=== PATIENT | male | born 1950 | race Caucasian/White ===

== ENCOUNTER 2023-03-08 14:38 | Inpatient (IN) ==
[2023-03-08] MEDS ORDERED: SODIUM CHLORIDE 0.9% 1,000 ML IV ONE (15:06)
[2023-03-08 15:22] LABS: Basophils # (auto) 0.09 K/uL (0.00-0.20); Basophils % (auto) 0.9 %; Eosinophils # (auto) 0.01 K/uL (0.00-0.50); Eosinophils % (auto) 0.1 %; Hematocrit (blood only) 33.2 % (42.0-52.0); Immature Granulocytes # (auto) 0.04 K/uL (0.01-0.20); Immature Granulocytes % (auto) 0.4 %; Lymphocytes # (auto) 0.94 K/uL (1.20-3.40); Lymphocytes % (auto) 9.4 %; Mean Corpuscular Hemoglobin 29.3 pg (25.0-34.0); Mean Corpuscular Hgb Conc 33.1 g/dL (32.0-36.0); Mean Corpuscular Volume 88.3 fL (80.0-100.0); Mean Platelet Volume 11.1 fL (9.4-12.4); Monocytes # (auto) 0.91 K/uL (0.11-0.59); Monocytes % (auto) 9.1 %; Neutrophils # (auto) 8.01 K/uL (1.40-6.50); Neutrophils % (auto) 80.1 %; Platelet Count 225 K/uL (130-400); RDW Standard Deviation 45.4 fL (36.4-46.3); Red Blood Count 3.76 M/uL (4.70-6.10)
[2023-03-08 15:30] LABS: Albumin Globulin Ratio 1.5 (0.9-2); BUN Creatinine Ratio 18.9 (10-20); Bilirubin,Total 0.7 mg/dl (0.2-1.0); Calcium 8.6 mg/dl (8.6-10.3); Creatinine Clr Calc Pharmacy 25.1 ml/min; Est GFR (African American) 25.2 ml/min; Est GFR (Non-African American) 21.7 ml/min; Globulin 2.7 gm/dl (2.5-4.0); Magnesium 1.5 mg/dl (1.7-2.4); Potassium 4.4 mmol/L (3.5-5.1); Total Protein 6.7 gm/dl (6.0-8.3)
[2023-03-08 15:37] LABS: Troponin I High Sensitivity 18.3 pg/ml (0-20)
--- NOTE | 2023-03-08 15:40 | Emergency Department Note ---
Impression & Plan Weakness, Hypotension, DUNCAN (acute kidney injury), Hypomagnesemia ED Provider Note ED Provider Note NAME: BRIDGER CAMARGO AGE:72 SEX: Male : 1950 ARRIVES VIA: EMS INFORMANT: Patient ED PROVIDER(s): Phyllis Valdez DO CHIEF COMPLAINT: generalized weakness, hypotension HPI: This is a 72-year-old male presents emergency department via EMS due to weakness and hypotension. Patient states he had been drinking fluids but had nothing to eat earlier in the day. He denies any alcohol consumption. He states while walking up to gait C he began feeling very weak. He states he sat down. He denies any fall or head injury. He denies loss of consciousness. He states after several minutes of sitting there his family was concerned and local state troopers helped him up and EMS was called for an evaluation. EMS found that his blood pressure was very low and recommend that he come to the ER for additional evaluation. Patient states at this time he feels well, just a little tired. He states he does take medication for hypertension, no recent change in this medication. Patient denies any recent fevers, chills, or illness. Patient denies any coming headaches, vision changes, nausea/vomiting, chest pain, palpit ations, trouble breathing, or abdominal pain. PAST MEDICAL HISTORY:See Below PAST SURGICAL HISTORY:See Below FAMILY HISTORY:See Below SOCIAL HISTORY:See Below HOME MEDICATIONS:See Below ALLERGIES:See Below VITALS:See Below PHYSICAL EXAMINATION: GENERAL: alert, well appearing, well nourished, no distress, non-toxic EYE EXAM: normal conjunctiva, PERRL and EOM's grossly intact OROPHARYNX: no exudate, no erythema, lips, buccal mucosa, and tongue normal and mucous membranes are moist NECK: supple, no nuchal rigidity, no adenopathy, non-tender LUNGS: Clear to auscultation. Normal chest wall mechanics, no w/r/r HEART: no murmurs, S1 normal and S2 normal ABDOMEN: abdomen soft, non-tender, normo-active bowel sounds, no masses, no rebound or guarding. BACK: Back is symmetrical on inspection and there is no deformity, no midline tenderness, no CVA tenderness. SKIN: no rashes, petechiae, orbruising UPPER EXTREMITIES: upper extremities are grossly normal. FROM, nml pulses b/l. LOWER EXTREMITIES: No pitting edema. FROM, nml pulses b/l. NEURO EXAM: Normal sensorium, cranial nerves II-XII grossly intact, normal speech, no facial droop,nogross weakness of arms, no gross weakness of legs. Gross sensation intact. No ataxia. Vital Signs: reviewed and remarkable Differential Diagnosis: dehydration, CVA, ICH, heat exhaustion, anemia, hypoglycemia, hyponatremia, hypernatremia, urinary tract infection, pneumonia, bronchitis, sepsis, gastroenteritis, electrolyte abnormality, as well as others were considered MEDICAL DECISION MAKING: This is a 72-year-old male brought in by EMS after patient complained of significant weakness and needed to sit down while walking the stadium. Patient afebrile and vital signs stable. Labs drawn and sent, IV established, EKG performed bedside interpreted by me and patient monitored on telemetry. Patient sent for additional CT head as a precaution which was reassuring. Patient was given IV fluids as he admitted to decreased oral intake today. Patient found to have new kidney dysfunction with a creatinine of 2.75 which is markedly elevated compared to prior from outpatient labs that was 1.2. Patient also found to have hypomagnesemia which was repleted via IV at bedside while patient was monitored in the department. No evidence of significant urinary retention, patient sent for CT imaging which did show prostatomegaly and chronic bladder outlet obstruction although at this time I do not suspect that this is a postobstructive process. No other evidence of obstructive uropathy. I discussed all results with patient and family at bedside. We discussed the need for additional inpatient evaluation given these findings and his symptoms today. Patient verbalized understanding was in agreement the plan. Case discussed with on-call [facility] hospitalist team. Consultation(s): 1854: Discussed with Dr. Crocker, [facility]ist team. ER Treatment Provided: See below 1622: Patient updated on results. Patient was able to pull lab values of his phone from March 2022 which at that time showed a creatinine of 1.2. Diagnostics Interpreted By Me: -ECG: Normal sinus at 91, normal axis, normal intervals, no acute ST/T wave changes -Cardiac Monitoring: An order was placed for continuous cardiac monitoring. The monitor shows a rate of 88 with normal sinus rhythm. -Laboratory studies: As stated above and show below. -Imaging studies: [] Triage Nursing Note Reviewed Prior/Outside Records Reviewed Past Med/Surg History Social History Smoking Status: Never smoker Allergies Allergies Allergy/AdvReac Type Severity Reaction Status Date / Time banana Allergy Severe Anaphylaxis Verified 03/08/23 16:45 Penicillins Allergy Unknown POSITIVE Verified 03/08/23 16:45 ALLERGY TEST Sulfa (Sulfonamide Allergy Unknown POSITIVE Verified 03/08/23 16:45 Antibiotics) ALLERGY TEST Home Meds Home Medications Medication Instructions Recorded Confirmed atorvastatin 40 mg tablet 40 mg PO QPM 03/08/23 03/08/23 calcium citrate 200 mg (950 mg) 600 mg PO HS 03/08/23 03/08/23 tablet lisinopril 20 1 tab PO QDL 03/08/23 03/08/23 mg-hydrochlorothiazide 25 mg tablet metformin 500 mg tablet 1,000 mg PO BIDM 03/08/23 03/08/23 potassium citrate 10 mEq (1,080 10 meq PO TIDM 03/08/23 03/08/23 mg) tablet,extended release sertraline 25 mg tablet 25 mg PO DAILY 03/08/23 03/08/23 Results & Data (ED) Vital Signs Vital Signs - 24 hr 03/08/23 14:44 03/08/23 15:00 03/08/23 14:49 Temperature 37.7 C H Temperature Source Oral Pulse Rate 85 93 H 104 H Respiratory Rate 15 13 Blood Pressure 103/53 L 109/65 Blood Pressure Mean 69 79 Pulse Oximetry 97 96 Oxygen Delivery Method Room Air Room Air Sepsis Recent Fever Within 48 Hours No Sepsis New/Unexplained Change in Mental Status N/A Sepsis Action Taken by Nursing No Action Required 03/08/23 15:33 03/08/23 15:44 03/08/23 16:00 Temperature Temperature Source Pulse Rate 89 91 H 90 Respiratory Rate 18 19 Blood Pressure 100/63 96/57 L Blood Pressure Mean 75 70 Pulse Oximetry 98 97 Oxygen Delivery Method Room Air Room Air Sepsis Recent Fever Within 48 Hours Sepsis New/Unexplained Change in Mental Status Sepsis Action Taken by Nursing 03/08/23 16:30 03/08/23 16:57 03/08/23 17:30 Temperature Temperature Source Pulse Rate 85 88 82 Respiratory Rate 13 18 17 Blood Pressure 103/61 108/65 105/55 L Blood Pressure Mean 75 79 71 Pulse Oximetry 97 96 97 Oxygen Delivery Method Room Air Room Air Room Air Sepsis Recent Fever Within 48 Hours Sepsis New/Unexplained Change in Mental Status Sepsis Action Taken by Nursing 03/08/23 18:03 03/08/23 18:30 03/08/23 19:00 Temperature Temperature Source Pulse Rate 84 78 83 Respiratory Rate 16 17 14 Blood Pressure 110/72 108/70 108/67 Blood Pressure Mean 84 82 80 Pulse Oximetry 97 98 97 Oxygen Delivery Method Room Air Room Air Room Air Sepsis Recent Fever Within 48 Hours Sepsis New/Unexplained Change in Mental Status Sepsis Action Taken by Nursing 03/08/23 20:07 03/08/23 20:30 03/08/23 21:00 Temperature Temperature Source Pulse Rate 86 84 85 Respiratory Rate 17 20 19 Blood Pressure 110/63 106/71 105/68 Blood Pressure Mean 78 82 80 Pulse Oximetry 91 94 96 Oxygen Delivery Method Room Air Room Air Room Air Sepsis Recent Fever Within 48 Hours Sepsis New/Unexplained Change in Mental Status Sepsis Action Taken by Nursing 03/08/23 21:30 Temperature Temperature Source Pulse Rate 87 Respiratory Rate 16 Blood Pressure 99/67 L Blood Pressure Mean 77 Pulse Oximetry 95 Oxygen Delivery Method Room Air Sepsis Recent Fever Within 48 Hours Sepsis New/Unexplained Change in Mental Status Sepsis Action Taken by Nursing Laboratory Data 03/08/23 14:47 03/08/23 14:47 Lab Results 03/08/23 03/08/23 03/08/23 Range/Units 14:47 14:47 14:47 WBC 10.00 (4.8-10.8) K/ul RBC 3.76 L (4.70-6.10) M/uL Hgb 11.0 L (14.0-18.0) g/dl Hct 33.2 L (42.0-52.0) % MCV 88.3 (80.0-100.0) fL MCH 29.3 (25.0-34.0) pg MCHC 33.1 (32.0-36.0) g/dL RDW Std Deviation 45.4 (36.4-46.3) fL RDW Coeff of Liz 14.0 (11.5-14.5) % Plt Count 225 (130-400) K/uL MPV 11.1 (9.4-12.4) fL Immature Gran % (Auto) 0.4 % Neut % (Auto) 80.1 % Lymph % (Auto) 9.4 % [place] % (Auto) 9.1 % Eos % (Auto) 0.1 % Baso % (Auto) 0.9 % Neut # (Auto) 8.01 H (1.40-6.50) K/uL Lymph # (Auto) 0.94 L (1.20-3.40) K/uL [place] # (Auto) 0.91 H (0.11-0.59) K/uL Eos # (Auto) 0.01 (0.00-0.50) K/uL Baso # (Auto) 0.09 (0.00-0.20) K/uL Immature Gran # (Auto) 0.04 (0.01-0.20) K/uL PT 11.9 (9.0-12.0) Seconds INR 1.1 (0.9-1.1) Sodium 135 L (136-145) mmol/L Potassium 4.4 (3.5-5.1) mmol/L Chloride 103 (98-107) mmol/L Carbon Dioxide 25 (21-32) mmol/L Anion Gap 7 (3-11) BUN 52 H (6-23) mg/dl Creatinine 2.75 H (0.6-1.4) mg/dl Est Cr Clr Drug Dosing 25.1 ml/min Est GFR ( Amer) 25.2 ml/min Est GFR (Non-Af Amer) 21.7 ml/min BUN/Creatinine Ratio 18.9 (10-20) Glucose 128 H (70-99(Fasting)) mg/dl Calcium 8.6 (8.6-10.3) mg/dl Magnesium 1.5 L (1.7-2.4) mg/dl Total Bilirubin 0.7 (0.2-1.0) mg/dl AST 16 (13-39) U/L ALT 13 (7-52) U/L Alkaline Phosphatase 47 (34-104) U/L Troponin I High Sens 18.3 (0-20) pg/ml Total Protein 6.7 (6.0-8.3) gm/dl Albumin 4.0 (3.4-5.0) gm/dl Globulin 2.7 (2.5-4.0) gm/dl Albumin/Globulin Ratio 1.5 (0.9-2) Lipase 21 (11-82) U/L TSH (0.300-4.500) uIu/ml Urine Color Urine Appearance (Clear) Urine pH (4.5-7.5) Ur Specific [place] (1.000-1.030) Urine Protein (Negative) Urine Glucose (UA) (Negative) Urine Ketones (Negative) Urine Blood (Negative) Urine Nitrite (Negative) Urine Bilirubin (Negative) Urine Urobilinogen (Negative) Ur Leukocyte Esterase (Negative) Urine WBC (Auto) (0-5) /hpf Urine RBC (Auto) (0-4) /hpf U Hyaline Cast (Auto) (0-5) /lpf U Epithel Cells (Auto) (0-5) /lpf Urine Bacteria (Auto) (Negative) Adenovirus (PCR) (NotDetected) B. pertussis DNA (PCR) (NotDetected) B.parapertussis DNA PCR (NotDetected) Lyme Disease IgG Ab (Negative) Lyme Disease IgM Ab (Negative) C. pneumoniae DNA (PCR) (NotDetected) Coronavirus OC43 (PCR) (NotDetected) Coronavirus HKU1 (PCR) (NotDetected) Coronavirus 229E (PCR) (NotDetected) SARS-CoV-2 (PCR) (NotDetected) Coronavirus NL63 (PCR) (NotDetected) Human Metapneumovir PCR (NotDetected) Influenza Type A (PCR) (NotDetected) Influenza Type B (PCR) (NotDetected) M. pneumoniae (PCR) (NotDetected) Parainfluenza 1 (PCR) (NotDetected) Parainfluenza 2 (PCR) (NotDetected) Parainfluenza 3 (PCR) (NotDetected) Parainfluenza 4 (PCR) (NotDetected) RSV (PCR) (NotDetected) Entero/Rhino (PCR) (NotDetected) 03/08/23 03/08/23 03/08/23 Range/Units 14:47 14:47 16:02 WBC (4.8-10.8) K/ul RBC (4.70-6.10) M/uL Hgb (14.0-18.0) g/dl Hct (42.0-52.0) % MCV (80.0-100.0) fL MCH (25.0-34.0) pg MCHC (32.0-36.0) g/dL RDW Std Deviation (36.4-46.3) fL RDW Coeff of Liz (11.5-14.5) % Plt Count (130-400) K/uL MPV (9.4-12.4) fL Immature Gran % (Auto) % Neut % (Auto) % Lymph % (Auto) % [place] % (Auto) % Eos % (Auto) % Baso % (Auto) % Neut # (Auto) (1.40-6.50) K/uL Lymph # (Auto) (1.20-3.40) K/uL [place] # (Auto) (0.11-0.59) K/uL Eos # (Auto) (0.00-0.50) K/uL Baso # (Auto) (0.00-0.20) K/uL Immature Gran # (Auto) (0.01-0.20) K/uL PT (9.0-12.0) Seconds INR (0.9-1.1) Sodium (136-145) mmol/L Potassium (3.5-5.1) mmol/L Chloride (98-107) mmol/L Carbon Dioxide (21-32) mmol/L Anion Gap (3-11) BUN (6-23) mg/dl Creatinine (0.6-1.4) mg/dl Est Cr Clr Drug Dosing ml/min Est GFR ( Amer) ml/min Est GFR (Non-Af Amer) ml/min BUN/Creatinine Ratio (10-20) Glucose (70-99(Fasting)) mg/dl Calcium (8.6-10.3) mg/dl Magnesium (1.7-2.4) mg/dl Total Bilirubin (0.2-1.0) mg/dl AST (13-39) U/L ALT (7-52) U/L Alkaline Phosphatase (34-104) U/L Troponin I High Sens (0-20) pg/ml Total Protein (6.0-8.3) gm/dl Albumin (3.4-5.0) gm/dl Globulin (2.5-4.0) gm/dl Albumin/Globulin Ratio (0.9-2) Lipase (11-82) U/L TSH 1.380 (0.300-4.500) uIu/ml Urine Color Yellow Urine Appearance Cloudy A (Clear) Urine pH 5.0 (4.5-7.5) Ur Specific [place] 1.015 (1.000-1.030) Urine Protein 1+ H (Negative) Urine Glucose (UA) Negative (Negative) Urine Ketones Trace H (Negative) Urine Blood Negative (Negative) Urine Nitrite Negative (Negative) Urine Bilirubin Negative (Negative) Urine Urobilinogen Negative (Negative) Ur Leukocyte Esterase Negative (Negative) Urine WBC (Auto) 1-5 (0-5) /hpf Urine RBC (Auto) 5-10 H (0-4) /hpf U Hyaline Cast (Auto) 10-30 H (0-5) /lpf U Epithel Cells (Auto) >30 H (0-5) /lpf Urine Bacteria (Auto) Negative (Negative) Adenovirus (PCR) (NotDetected) B. pertussis DNA (PCR) (NotDetected) B.parapertussis DNA PCR (NotDetected) Lyme Disease IgG Ab Negative (Negative) Lyme Disease IgM Ab Negative (Negative) C. pneumoniae DNA (PCR) (NotDetected) Coronavirus OC43 (PCR) (NotDetected) Coronavirus HKU1 (PCR) (NotDetected) Coronavirus 229E (PCR) (NotDetected) SARS-CoV-2 (PCR) (NotDetected) Coronavirus NL63 (PCR) (NotDetected) Human Metapneumovir PCR (NotDetected) Influenza Type A (PCR) (NotDetected) Influenza Type B (PCR) (NotDetected) M. pneumoniae (PCR) (NotDetected) Parainfluenza 1 (PCR) (NotDetected) Parainfluenza 2 (PCR) (NotDetected) Parainfluenza 3 (PCR) (NotDetected) Parainfluenza 4 (PCR) (NotDetected) RSV (PCR) (NotDetected) Entero/Rhino (PCR) (NotDetected) 03/08/23 Range/Units 20:04 WBC (4.8-10.8) K/ul RBC (4.70-6.10) M/uL Hgb (14.0-18.0) g/dl Hct (42.0-52.0) % MCV (80.0-100.0) fL MCH (25.0-34.0) pg MCHC (32.0-36.0) g/dL RDW Std Deviation (36.4-46.3) fL RDW Coeff of Liz (11.5-14.5) % Plt Count (130-400) K/uL MPV (9.4-12.4) fL Immature Gran % (Auto) % Neut % (Auto) % Lymph % (Auto) % [place] % (Auto) % Eos % (Auto) % Baso % (Auto) % Neut # (Auto) (1.40-6.50) K/uL Lymph # (Auto) (1.20-3.40) K/uL [place] # (Auto) (0.11-0.59) K/uL Eos # (Auto) (0.00-0.50) K/uL Baso # (Auto) (0.00-0.20) K/uL Immature Gran # (Auto) (0.01-0.20) K/uL PT (9.0-12.0) Seconds INR (0.9-1.1) Sodium (136-145) mmol/L Potassium (3.5-5.1) mmol/L Chloride (98-107) mmol/L Carbon Dioxide (21-32) mmol/L Anion Gap (3-11) BUN (6-23) mg/dl Creatinine (0.6-1.4) mg/dl Est Cr Clr Drug Dosing ml/min Est GFR ( Amer) ml/min Est GFR (Non-Af Amer) ml/min BUN/Creatinine Ratio (10-20) Glucose (70-99(Fasting)) mg/dl Calcium (8.6-10.3) mg/dl Magnesium (1.7-2.4) mg/dl Total Bilirubin (0.2-1.0) mg/dl AST (13-39) U/L ALT (7-52) U/L Alkaline Phosphatase (34-104) U/L Troponin I High Sens (0-20) pg/ml Total Protein (6.0-8.3) gm/dl Albumin (3.4-5.0) gm/dl Globulin (2.5-4.0) gm/dl Albumin/Globulin Ratio (0.9-2) Lipase (11-82) U/L TSH (0.300-4.500) uIu/ml Urine Color Urine Appearance (Clear) Urine pH (4.5-7.5) Ur Specific [place] (1.000-1.030) Urine Protein (Negative) Urine Glucose (UA) (Negative) Urine Ketones (Negative) Urine Blood (Negative) Urine Nitrite (Negative) Urine Bilirubin (Negative) Urine Urobilinogen (Negative) Ur Leukocyte Esterase (Negative) Urine WBC (Auto) (0-5) /hpf Urine RBC (Auto) (0-4) /hpf U Hyaline Cast (Auto) (0-5) /lpf U Epithel Cells (Auto) (0-5) /lpf Urine Bacteria (Auto) (Negative) Adenovirus (PCR) Not Detected (NotDetected) B. pertussis DNA (PCR) Not Detected (NotDetected) B.parapertussis DNA PCR Not Detected (NotDetected) Lyme Disease IgG Ab (Negative) Lyme Disease IgM Ab (Negative) C. pneumoniae DNA (PCR) Not Detected (NotDetected) Coronavirus OC43 (PCR) Not Detected (NotDetected) Coronavirus HKU1 (PCR) Not Detected (NotDetected) Coronavirus 229E (PCR) Not Detected (NotDetected) SARS-CoV-2 (PCR) DETECTED A* (NotDetected) Coronavirus NL63 (PCR) Not Detected (NotDetected) Human Metapneumovir PCR Not Detected (NotDetected) Influenza Type A (PCR) Not Detected (NotDetected) Influenza Type B (PCR) Not Detected (NotDetected) M. pneumoniae (PCR) Not Detected (NotDetected) Parainfluenza 1 (PCR) Not Detected (NotDetected) Parainfluenza 2 (PCR) Not Detected (NotDetected) Parainfluenza 3 (PCR) Not Detected (NotDetected) Parainfluenza 4 (PCR) Not Detected (NotDetected) RSV (PCR) Not Detected (NotDetected) Entero/Rhino (PCR) Not Detected (NotDetected) Administered Medications Discontinued Medications Sodium Chloride (Nss) 1,000 mls @ 999 mls/hr IV .Q1H1M ONE Stop: 03/08/23 16:06 Last Infusion: 03/08/23 17:59 Dose: 0 mls/hr Documented By: Admin: 03/08/23 15:34 Dose: 999 mls/hr Documented By: LEXUS Magnesium Sulfate/Dextrose (Magnesium Sulfate / D5w) 1 gm in 100 mls @ 100 mls/hr IV Q1H KHANH Stop: 03/08/23 17:57 Last Infusion: 03/08/23 18:25 Dose: 0 mls/hr Documented By: Admin: 03/08/23 17:23 Dose: 100 mls/hr Documented By: Infusion: 03/08/23 17:11 Dose: 100 mls/hr Documented By: Admin: 03/08/23 16:11 Dose: 100 mls/hr Documented By: ELLY Imaging Data Radiologist's Impression: Head CT 03/08/23 15:06 CT SCAN OF THE BRAIN WITHOUT IV CONTRAST CLINICAL HISTORY: Generalized weakness. Hypotension. COMPARISON STUDY: No priors. TECHNIQUE: Unenhanced axial CT scan of the brain is performed from the vertex to the skull base. A dose lowering technique was utilized adhering to the principles of ALARA. CT DOSE: 703.85 mGy.cm FINDINGS: Brain parenchyma: There is age-related involutional change noting mild subcortical and periventricular microangiopathic disease. There is no hemorrhage, mass effect, or evidence of acute territorial ischemia by CT criteria. Ybarra-white matter differentiation is preserved. No extra-axial fluid collection is seen. Ventricles, sulci, cisterns: Prominent secondary to involutional change. Intracranial vasculature: There is atherosclerotic calcification of the ca vernous carotid and vertebral artery. Calvarium: Unremarkable. Sinuses and mastoids: There is trace mucosal thickening in the right maxillary antrum and ethmoid sinuses. There is also trace mucosal thickening within the right frontal and left sphenoid sinuses. The mastoid air cells are well pneumatized. Orbits: The bony orbits are grossly intact. IMPRESSION: There is no hemorrhage, mass effect, or evidence of acute territorial ischemia by CT criteria. ACT 112: Negative or not required by law. Electronically signed by: Jayjay Delgado M.D. 03/08/2023 4:01 PM Abdomen/Pelvis CT 03/08/23 16:27 CT SCAN OF THE ABDOMEN AND PELVIS WITHOUT IV CONTRAST CLINICAL HISTORY: Acute renal insufficiency. COMPARISON STUDY: No priors. TECHNIQUE: CT scan of the abdomen and pelvis is performed from the lung bases to the proximal femora. Images are reviewed in the axial, sagittal, and coronal planes. IV contrast was not administered for this examination. A dose lowering technique was utilized adhering to the principles of ALARA. CT DOSE: 1210.14 mGy.cm FINDINGS: Lung bases: The heart is mildly enlarged and without pericardial effusion. The coronary arteries are densely calcified. There is mild aneurysmal dilatation of the partially visualized ascending thoracic aorta. This measures up to 4.3 cm. There are scattered calcified granulomas. The lung bases are otherwise clear noting bibasilar scarring/atelectasis. There is a tiny hiatal hernia. Liver: The unenhanced liver is enlarged, measuring 19.7 cm in length. The liver demonstrates diminished attenuation indicating mild steatosis. Fatty sparing is seen adjacent to the gallbladder fossa. There is no intrahepatic biliary ductal dilatation. Gallbladder: Unremarkable. Spleen: Normal in size and attenuation. There are calcified splenic granulomas. Pancreas: The unenhanced pancreas is grossly unremarkable. Adrenal glands: Unremarkable. Kidneys: The unenhanced kidneys are normal in size and without hydronephrosis. There is a punctate nonobstructing right renal calculus. No left renal calculi are identified and no ureteral stone is seen. A 1.7 cm cyst is seen in the right upper pole. Abdominal vasculature: The abdominal aorta is normal in course and caliber noting advanced atherosclerotic calcification. Bowel: There is moderate colonic diverticulosis without CT evidence of acute diverticulitis. Mild to moderate fecal retention is noted throughout the colon. There is a large right inguinal hernia which contains loops of bowel. There is no bowel obstruction. The appendix is well-visualized and normal, and located within the right hernia. Peritoneum: There is no intraperitoneal free air or abdominal ascites. Lymphadenopathy: None. Pelvic viscera: The prostate gland is enlarged and heterogeneous. The bladder is distended, and the wall is thickened/trabeculated indicating chronic outlet obstruction. There is evidence of previous left inguinal herniorrhaphy. Findings also suggest previous right herniorrhaphy. There is a large right inguinal hernia which contains bowel loops. Skeletal structures: The skeletal structures are osteopenic. There is moderate lumbosacral spondylosis. Degenerative change and partial fusion is seen in the sacroiliac joints. No lytic or blastic lesions are seen. IMPRESSION: 1. No acute infectious or inflammatory findings are identified in the abdomen or pelvis. 2. A large right inguinal hernia contains nonobstructed bowel. 3. Punctate nonobstructing right renal calculus. 4. Prostatomegaly with evidence of chronic bladder outlet obstruction. 5. Hepatomegaly and mild steatosis. 6. Additional findings as above. ACT 112: Negative or not required by law. Electronically signed by: Jayjay Delgado M.D. 03/08/2023 5:13 PM Chest X-Ray 03/08/23 19:45 SINGLE VIEW CHEST CLINICAL HISTORY: Cough FINDINGS: An AP, portable, upright chest radiograph is obtained. No prior studies are available for comparison at the time of dictation. The heart is enlarged. The pulmonary vasculature is noncongested. There is bibasilar scarring/atelectasis. Scattered calcified granulomas are observed. No airspace consolidation or large pleural effusion is identified. No pneumothorax is seen. The skeletal structures are osteopenic. The bony thorax is grossly intact. Arthritic change is noted in the shoulders. IMPRESSION: Cardiomegaly with no active disease in the chest. ACT 112: Negative or not required by law. Electronically signed by: Jayjay Delgado M.D. 03/08/2023 8:00 PM Discharge Plan Visit Data Chief Complaint: Hypotension ED Provider: Phyllis Valdez Discharge Problem: Weakness, Hypotension, DUNCAN (acute kidney injury), Hypomagnesemia Forms Stand Alone Forms: [facility] Prescriptions Prescriptions: No Action atorvastatin 40 mg tablet 40 mg PO QPM metformin 500 mg tablet 1,000 mg PO BIDM potassium citrate 10 mEq (1,080 mg) tablet extended release 10 meq PO TIDM sertraline 25 mg tablet 25 mg PO DAILY lisinopril-hydrochlorothiazide 20-25 mg tablet 1 tab PO QDL calcium citrate 200 mg (950 mg) Tablet 600 mg PO HS Rx Instructions: Take with third dose of potassium citrate at night for kidney stones Referrals Referrals: PCP,NO [Primary Care Provider] -
[2023-03-08 15:46] LABS: INR 1.1 (0.9-1.1); Prothrombin Time 11.9 Seconds (9.0-12.0)
--- NOTE | 2023-03-08 16:02 | CT Scan Report ---
CT SCAN OF THE BRAIN WITHOUT IV CONTRAST CLINICAL HISTORY: Generalized weakness. Hypotension. COMPARISON STUDY: No priors. TECHNIQUE: Unenhanced axial CT scan of the brain is performed from the vertex to the skull base. A do se lowering technique was utilized adhering to the principles of ALARA. CT DOSE: 703.85 mGy.cm FINDINGS: Brain parenchyma: There is age-related involutional change noting mild subcortical and periventricula r microangiopathic disease. There is no hemorrhage, mass effect, or evidence of acute territorial isc hemia by CT criteria. Ybarra-white matter differentiation is preserved. No extra-axial fluid collection is seen. Ventricles, sulci, cisterns: Prominent secondary to involutional change. Intracranial vasculature: There is atherosclerotic calcification of the cavernous carotid and vertebr al artery. Calvarium: Unremarkable. Sinuses and mastoids: There is trace mucosal thickening in the right maxillary antrum and ethmoid sin uses. There is also trace mucosal thickening within the right frontal and left sphenoid sinuses. The mastoid air cells are well pneumatized. Orbits: The bony orbits are grossly intact. IMPRESSION: There is no hemorrhage, mass effect, or evidence of acute territorial ischemia by CT dony davey. ACT 112: Negative or not required by law. Electronically signed by: Jayjay Delgado M.D. 03/08/2023 4:01 PM
[2023-03-08] MEDS: MAGNESIUM SULFATE / D5W 1 GM/100 ML BAG IV SCH ×2 (16:11→17:23)
[2023-03-08 16:16] LABS: Appearance Urine Cloudy (Clear); Bacteria Urine Automated Negative (Negative); Bilirubin Urine Negative (Negative); Blood Urine Negative (Negative); Color Urine Yellow; Epithelial Cell Urine Auto >30 /lpf (0-5); Glucose Urine UA Negative (Negative); Ketones Urine Trace (Negative); Leukocyte Esterase Urine Negative (Negative); Nitrite Urine Negative (Negative); Protein Urine 1+ (Negative); Specific Gravity Urine 1.015 (1.000-1.030); Urobilinogen Urine Negative (Negative)
--- NOTE | 2023-03-08 17:15 | CT Scan Report ---
CT SCAN OF THE ABDOMEN AND PELVIS WITHOUT IV CONTRAST CLINICAL HISTORY: Acute renal insufficiency. COMPARISON STUDY: No priors. TECHNIQUE: CT scan of the abdomen and pelvis is performed from the lung bases to the proximal femora. Images are reviewed in the axial, sagittal, and coronal planes. IV contrast was not administered for this examination. A dose lowering technique was utilized adhering to the principles of ALARA. CT DOSE: 1210.14 mGy.cm FINDINGS: Lung bases: The heart is mildly enlarged and without pericardial effusion. The coronary arteries are densely calcified. There is mild aneurysmal dilatation of the partially visualized ascending thoracic aorta. This measures up to 4.3 cm. There are scattered calcified granulomas. The lung bases are othe rwise clear noting bibasilar scarring/atelectasis. There is a tiny hiatal hernia. Liver: The unenhanced liver is enlarged, measuring 19.7 cm in length. The liver demonstrates diminish ed attenuation indicating mild steatosis. Fatty sparing is seen adjacent to the gallbladder fossa. Th ere is no intrahepatic biliary ductal dilatation. Gallbladder: Unremarkable. Spleen: Normal in size and attenuation. There are calcified splenic granulomas. Pancreas: The unenhanced pancreas is grossly unremarkable. Adrenal glands: Unremarkable. Kidneys: The unenhanced kidneys are normal in size and without hydronephrosis. There is a punctate no nobstructing right renal calculus. No left renal calculi are identified and no ureteral stone is seen . A 1.7 cm cyst is seen in the right upper pole. Abdominal vasculature: The abdominal aorta is normal in course and caliber noting advanced atheroscle rotic calcification. Bowel: There is moderate colonic diverticulosis without CT evidence of acute diverticulitis. Mild to moderate fecal retention is noted throughout the colon. There is a large right inguinal hernia which contains loops of bowel. There is no bowel obstruction. The appendix is well-visualized and normal, and located within the right hernia. Peritoneum: There is no intraperitoneal free air or abdominal ascites. Lymphadenopathy: None. Pelvic viscera: The prostate gland is enlarged and heterogeneous. The bladder is distended, and the w all is thickened/trabeculated indicating chronic outlet obstruction. There is evidence of previous le ft inguinal herniorrhaphy. Findings also suggest previous right herniorrhaphy. There is a large right inguinal hernia which contains bowel loops. Skeletal structures: The skeletal structures are osteopenic. There is moderate lumbosacral spondylosi s. Degenerative change and partial fusion is seen in the sacroiliac joints. No lytic or blastic lesio ns are seen. IMPRESSION: 1. No acute infectious or inflammatory findings are identified in the abdomen or pelvis. 2. A large right inguinal hernia contains nonobstructed bowel. 3. Punctate nonobstructing right renal calculus. 4. Prostatomegaly with evidence of chronic bladder outlet obstruction. 5. Hepatomegaly and mild steatosis. 6. Additional findings as above. ACT 112: Negative or not required by law. Electronically signed by: Jayjay Delgado M.D. 03/08/2023 5:13 PM
--- NOTE | 2023-03-08 19:16 | History & Physical Report ---
Date of Service March 08, 2023 Assessment & Plan (1) Weakness: (2) Hypotension: (3) DUNCAN (acute kidney injury): (4) Hypomagnesemia: (5) Pre-syncope: (6) COVID-19: Plan Pt is a 72yoM with PMHx significant for Hx of kidney stones, HTN, HLD, DMII, Mood disorder presenting with a presyncopal episode [place] [employer]. Hypotension/Presyncopal Episode/COVID-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 Hold home lisinopril-hctz. Suspect symptoms related to covid infection Hypomagnesemia Replete as need Hyponatremia Na of 135 NSS Hx of kidney stones Notes chronic history Non obstructing calculus noted on CT abd pelvis On potassium citrate and OTC calcium citrate, follows with urology States he takes OTC calcium citrate 600mg at night with third potassium citrate dose Prostatomegaly with chronic bladder outlet obstruction Noted on CT/abd pelvis Follows with urology R inguinal hernia Noted on abd/pelvis CT Bowel present in hernia but not incarcerated DUNCAN Cr elevated from baseline of labs he has on his on phone from a year ago, baseline about 1.2 Received 1L bolus in ED Continue NSS @[address] abd pelvis, mild to mod stool retention States last BM was today though not much Ordered scheduled dulcolax and prn miralax DMII AM [id number] Hold home metformin, ISS HTN Due to hypotensive/pre-syncopal episode, hold home antihypertensive. HLD Continue home statin Mood Continue home sertraline CODE STATUS: Full code Diet: DMII DVT prophylaxis: Lovenox SQ Dispo: Tele History of Present Illness Chief Complaint: Hypotension Primary Care Provider: NO PCP Pt is a 72yoM with PMHx significant for Hx of kidney stones, HTN, HLD, DMII, Mood disorder presenting with a presyncopal episode while [place] the gate [place] the [place] [employer] States that he typically follows with a pcp in [place]. States he was walk ing into the stadium when he felt weak and sat down. The security noticed him sitting and got medical/EMS to evaluate him and they noted that his blood pressure was very low and advised followup in the ED. Pt states he has had a cough for the last 3 days but did not make much of it. Denies SOB or chest pain. Unsure if he has been recently bitten by a tick but notes it could be a possibility. 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 Has not had episodes like this before. Notes a chronic history of kidney stones that he states he follows with urology for and is on medication to prevent formation. Notes he got very big ones in the past. ED Course: Head ct unremarkable, hypomagnesemia of 1.5 replenished and received a 1L bolus of fluid. Cr newly elevated at 2.[address] ordered by the ED for followup. Allergies Allergy/AdvReac Type Severity Reaction Status Date / Time banana Allergy Severe Anaphylaxis Verified 03/08/23 16:45 Penicillins Allergy Unknown POSITIVE Verified 03/08/23 16:45 ALLERGY TEST Sulfa (Sulfonamide Allergy Unknown POSITIVE Verified 03/08/23 16:45 Antibiotics) ALLERGY TEST Home Medications Medication Instructions Recorded Confirmed Type atorvastatin 40 mg tablet 40 mg PO QPM 03/08/23 03/08/23 History calcium citrate 200 mg (950 mg) 600 mg PO HS 03/08/23 03/08/23 History tablet lisinopril 20 1 tab PO QDL 03/08/23 03/08/23 History mg-hydrochlorothiazide 25 mg tablet metformin 500 mg tablet 1,000 mg PO BIDM 03/08/23 03/08/23 History potassium citrate 10 mEq (1,080 10 meq PO TIDM 03/08/23 03/08/23 History mg) tablet,extended release sertraline 25 mg tablet 25 mg PO DAILY 03/08/23 03/08/23 History Past Med/Surg History Social History Smoking Status: Never smoker Second Hand Exposure: No; Do You Dip or Chew Tobacco: No; Tobacco Cessation Education Requested by Patient: No Hx Alcohol Use: Yes Alcohol type: beer Hx Substance Use: No Preferred Language: Estonian Communication Ability: Effective Bowl Sander Required: No Beliefs That Will Affect Care: None Current Living Situation: Spouse Feels Safe at Home: Yes Safety Concerns: Feels Safe At This Time Assistive Devices: None Review of Systems Review of Systems: All systems reviewed & are unremarkable except as noted in HPI & below Physical Exam Physical Exam: General: Alert, oriented. Under a warm blanket Skin: No noted rashes or bruises or insect bites Psych: Appropriate mood and affect Neuro: No gross deficits HEENT: NC/AT CV: RRR, Normal s1, s2. No murmurs appreciated Resp: Breath sounds clear bilaterally, no increased effort of breathing. No crackles/rhonchi/rales. Abdomen: Soft, nontender, nondistended. No guarding. No organomegaly appreciated. Extremities: No edema in lower extremities bilaterally. Results & Data Results & Data Vital Signs (Past 12 Hours) Vital Signs Temp Pulse Resp BP Pulse Ox O2 Del Method 03/08/23 18:30 78 17 108/70 98 Room Air 03/08/23 18:03 84 16 110/72 97 Room Air 03/08/23 17:30 82 17 105/55 L 97 Room Air 03/08/23 16:57 88 18 108/65 96 Room Air 03/08/23 16:30 85 13 103/61 97 Room Air 03/08/23 16:00 90 19 96/57 L 97 Room Air 03/08/23 15:44 91 H 03/08/23 15:33 89 18 100/63 98 Room Air 03/08/23 14:49 104 H 03/08/23 15:00 93 H 13 109/65 96 Room Air 03/08/23 14:44 37.7 C H 85 15 103/53 L 97 Room Air Diagnostic Findings Chest X-Ray 03/08/23 19:45 SINGLE VIEW CHEST CLINICAL HISTORY: Cough FINDINGS: An AP, portable, upright chest radiograph is obtained. No prior studies are available for comparison at the time of dictation. The heart is enlarged. The pulmonary vasculature is noncongested. There is bibasilar scarring/atelectasis. Scattered calcified granulomas are observed. No airspace consolidation or large pleural effusion is identified. No pneumothorax is seen. The skeletal structures are osteopenic. The bony thorax is grossly intact. Arthritic change is noted in the shoulders. IMPRESSION: Cardiomegaly with no active disease in the chest. ACT 112: Negative or not required by law. Electronically signed by: Jayjay Delgado M.D. 03/08/2023 8:00 PM
--- NOTE | 2023-03-08 20:01 | XRay Report ---
SINGLE VIEW CHEST CLINICAL HISTORY: Cough FINDINGS: An AP, portable, upright chest radiograph is obtained. No prior studies are available for c omparison at the time of dictation. The heart is enlarged. The pulmonary vasculature is noncongested. There is bibasilar scarring/atelectasis. Scattered calcified granulomas are observed. No airspace co nsolidation or large pleural effusion is identified. No pneumothorax is seen. The skeletal structures are osteopenic. The bony thorax is grossly intact. Arthritic change is noted in the shoulders. IMPRESSION: Cardiomegaly with no active disease in the chest. ACT 112: Negative or not required by law. Electronically signed by: Jayjay Delgado M.D. 03/08/2023 8:00 PM
[2023-03-08 20:36] LABS: Lyme Ab IgG w/WB Rflx Negative (Negative); Lyme Ab IgM w/WB Rflx Negative (Negative)
[2023-03-08 21:02] LABS: Adenovirus PCR Not Detected (NotDetected); Bordetella parapertussis PCR Not Detected (NotDetected); Bordetella pertussis PCR Not Detected (NotDetected); Chlamydia pneumoniae PCR Not Detected (NotDetected); Coronavirus 229E PCR Not Detected (NotDetected); Coronavirus HKU1 PCR Not Detected (NotDetected); Coronavirus NL63 PCR Not Detected (NotDetected); Coronavirus OC43PCR Not Detected (NotDetected); Human Metapneumovirus PCR Not Detected (NotDetected); Influenza A PCR Not Detected (NotDetected); Influenza B PCR Not Detected (NotDetected); Mycoplasma pneumoniae PCR Not Detected (NotDetected); Parainfluenza Virus 1 PCR Not Detected (NotDetected); Parainfluenza Virus 2 PCR Not Detected (NotDetected); Parainfluenza Virus 3 PCR Not Detected (NotDetected); Parainfluenza Virus 4 PCR Not Detected (NotDetected); Respiratory Syncytial VirusPCR Not Detected (NotDetected); Rhinovirus/Enterovirus PCR Not Detected (NotDetected)
[2023-03-08 21:06] LABS: Coronavirus CoV-2 (COVID19)PCR DETECTED (NotDetected)
[2023-03-08] MEDS ORDERED: POLYETHYLENE (MIRALAX) 17 GM PACK PO PRN (23:11)
[2023-03-08] MEDS ORDERED: CALCIUM CITRATE 950 MG TAB PO SCH (23:11)
[2023-03-09] MEDS: ATORVASTATIN 40 MG TAB PO SCH ×2 (00:12→20:36)
[2023-03-09] MEDS: DOCUSATE SODIUM 100 MG CAP PO SCH ×3 (00:13→20:37)
[2023-03-09] MEDS: SODIUM CHLORIDE 0.9% 1,000 ML IV SCH ×3 (00:18→20:36)
[2023-03-09] MEDS ORDERED: ACETAMINOPHEN 500 MG TAB PO PRN (06:05)
[2023-03-09] MEDS: ENOXAPARIN INJ 40 MG/0.4 ML SYR SQ SCH (06:06)
[2023-03-09 08:18] LABS: Albumin Globulin Ratio 1.3 (0.9-2); Albumin Level 3.7 gm/dl (3.4-5.0); BUN Creatinine Ratio 24.8 (10-20); Bilirubin,Total 0.7 mg/dl (0.2-1.0); Calcium 8.3 mg/dl (8.6-10.3); Creatinine Clr Calc Pharmacy 42.9 ml/min; Est GFR (African American) 48.1 ml/min; Est GFR (Non-African American) 41.5 ml/min; Globulin 2.8 gm/dl (2.5-4.0); Magnesium 1.8 mg/dl (1.7-2.4); Phosphorus 2.5 mg/dl (2.5-4.9); Potassium 4.4 mmol/L (3.5-5.1); Total Protein 6.5 gm/dl (6.0-8.3)
[2023-03-09] MEDS ORDERED: GLUCOSE 10 TAB/TUBE PO PRN (08:19)
[2023-03-09] MEDS ORDERED: GLUCOSE 40% GEL 15 GM TUBE PO PRN (08:19)
[2023-03-09] MEDS ORDERED: GLUCAGON FOR INJ 1 MG VIAL SQ PRN (08:19)
[2023-03-09] MEDS ORDERED: DEXTROSE 50% 50 ML SYRINGE IV PRN (08:19)
[2023-03-09] MEDS ORDERED: CARBOHYDRATES FOR HYPOGLYCEMIA PO PRN (08:19)
[2023-03-09] MEDS: DOXYCYCLINE HYCLATE 100 MG CAP PO SCH ×2 (09:15→20:37)
[2023-03-09] MEDS: SERTRALINE HCL 50 MG TABLET PO SCH (09:17)
[2023-03-09] MEDS: POTASSIUM CITRATE 10 MEQ TAB PO SCH ×3 (09:17→17:30)
--- NOTE | 2023-03-09 09:17 | Electrocardiogram Report ---
Test Reason : Blood Pressure : / mmHG Vent. Rate : 091 BPM Atrial Rate : 091 BPM P-R Int : 152 ms QRS Dur : 080 ms QT Int : 352 ms P-R-T Axes : 014 037 -01 degrees QTc Int : 432 ms Normal sinus rhythm Normal ECG No previous ECGs available Confirmed by Lele Haley ([id number]) on 03/09/2023 9:17:17 AM Referred By: REFERRED SELF Confirmed By:Lele Haley
[2023-03-09] MEDS ORDERED: LISINOPRIL/HCTZ 20/25MG 1 TAB PO SCH (11:30)
[2023-03-09] MEDS: CALCIUM CITRATE 950 MG TAB PO SCH ×2 (12:23→12:29)
[2023-03-09] MEDS: INSULIN ASPART PER UNIT CHARGE SC SCH ×3 (12:26→20:25)
[2023-03-09] MEDS ORDERED: REMDESIVIR 200 MG in SODIUM CHLORIDE 0.9% 210 ML IV STA (12:38)
--- NOTE | 2023-03-09 13:57 | Hospitalist Progress Note ---
Date of Service March 09, 2023 Assessment & Plan (1) Weakness: (2) Hypotension: (3) DUNCAN (acute kidney injury): (4) Hypomagnesemia: (5) Pre-syncope: (6) COVID-19: Plan Pt is a 72yoM with PMHx significant for Hx of kidney stones, HTN, HLD, DMII, Mood disorder presenting with a presyncopal episode while [place] the gate [place] the [place] the [employer]. Hypotension/Presyncopal Episode COVID-19 infection. Vaccinated for COVID as per patient Clinically dehydrated --CT Head:There is no hemorrhage, mass effect, or evidence of acute territorial ischemia by CT criteria. --CXR:Cardiomegaly with no active disease in the chest. CRP, procalcitonin pending Started on remdesivir as per patient's request No indication for steroids Saturating well on room air Conservative management Monitor volume status while on IV fluids DUNCAN --CT ABD:No acute infectious or inflammatory findings are identified in the abdomen or pelvis. A large right inguinal hernia contains nonobstructed bowel. Punctate nonobstructing right renal calculus. Prostatomegaly with evidence of chronic bladder outlet obstruction. Hepatomegaly and mild steatosis. Cr 2.7>1.6 Fatty liver, prostatomegaly, nonobstructive right inguinal hernia--chronic/patient aware Continue to hold lisinopril, HCTZ Continue IV fluids Monitor renal function Avoid nephrotoxic agents as able Monitor Hypomagnesemia Replete as needed Hyponatremia Na 135 monitor H/O nephrolithiasis Non obstructing calculus noted on CT abd pelvis as above On potassium citrate and OTC calcium citrate, follows with urology Also on OTC calcium citrate Prostatomegaly with chronic bladder outlet obstruction Follows with urology Monitor for any retention Constipation Continue bowel regimen Monitor DM II HbA1C pending Hold metformin Continue Insulin while hospitalized HTN Presented with Hypotension Hold lisinopril, HCTZ Monitor BP HLD Continue statin Mood Disorder Continue sertraline DVT Px: Lovenox SQ CODE STATUS: Full code Admission and Anticipated Discharge Date Admission Date: March 08, 2023 Subjective Patient is seen and examined at bedside States feeling a lot better today Reports cough with minimal expectoration Appetite better today Denies any dizziness, chest pain, shortness of breath Blood pressure better today Renal function improving Saturating well on room air No other complaints Review of Systems Review of Systems: All systems reviewed & are unremarkable except as noted in Subjective Physical Exam Physical Exam: Physical Exam: Vitals signs as noted above General Appearance:Moderately built and nourished, no apparent distress Head: normocephalic, Atraumatic Eyes: normal inspection, EOMI Neck: supple, Trachea midline Respiratory/Chest: Decreased breath sounds, CTA, No accessory muscle use Cardiovascular: S1, S2, No murmur Abdomen/GI:Soft, Non tender, Bowel sounds present Extremities/Musculoskeletal:normal inspection, no edema Neurologic/Psych:AAOX3, grossly no focal neurological deficits Skin: normal color, warm Results & Data Results & Data Vital Signs (Past 12 Hours) Vital Signs Temp Pulse Pulse Resp BP Pulse Ox O2 Del Method 03/09/23 12:22 36.9 C 85 16 108/64 98 Room Air 03/09/23 08:00 96 H 03/09/23 07:54 36.9 C 81 18 100/59 L 94 Room Air 03/09/23 03:00 37.5 C 68 20 91/51 L 91 Room Air Laboratory Results Short CBC 03/08/23 Range/Units 14:47 WBC 10.00 (4.8-10.8) K/ul Hgb 11.0 L (14.0-18.0) g/dl Hct 33.2 L (42.0-52.0) % Plt Count 225 (130-400) K/uL BMP 03/08/23 03/09/23 14:47 07:14 Sodium 135 L 135 L Potassium 4.4 4.4 Chloride 103 104 Carbon Dioxide 25 24 BUN 52 H 40 H Creatinine 2.75 H 1.61 H D Glucose 128 H 111 H Calcium 8.6 8.3 L Liver Function 03/08/23 03/09/23 Range/Units 14:47 07:14 Total Bilirubin 0.7 0.7 (0.2-1.0) mg/dl AST 16 18 (13-39) U/L ALT 13 15 (7-52) U/L Alkaline Phosphatase 47 43 (34-104) U/L Albumin 4.0 3.7 (3.4-5.0) gm/dl Urine 03/08/23 Range/Units 16:02 Urine Color Yellow Urine Appearance Cloudy A (Clear) Urine pH 5.0 (4.5-7.5) Ur Specific [place] 1.015 (1.000-1.030) Urine Protein 1+ H (Negative) Urine Glucose (UA) Negative (Negative)
[2023-03-10] MEDS: ENOXAPARIN INJ 40 MG/0.4 ML SYR SQ SCH (06:14)
[2023-03-10 06:51] LABS: Hematocrit (blood only) 32.3 % (42.0-52.0); Hemoglobin 10.9 g/dl (14.0-18.0); Mean Corpuscular Hemoglobin 29.3 pg (25.0-34.0); Mean Corpuscular Hgb Conc 33.7 g/dL (32.0-36.0); Mean Corpuscular Volume 86.8 fL (80.0-100.0); Mean Platelet Volume 10.9 fL (9.4-12.4); Platelet Count 197 K/uL (130-400); RDW Coefficient of Variation 14.2 % (11.5-14.5); RDW Standard Deviation 45.1 fL (36.4-46.3); Red Blood Count 3.72 M/uL (4.70-6.10); White Blood Count 7.18 K/ul (4.8-10.8)
[2023-03-10 07:04] LABS: BUN Creatinine Ratio 22.8 (10-20); C Reactive Protein 9.42 mg/dl (0-0.5); Calcium 8.1 mg/dl (8.6-10.3); Creatinine Clr Calc Pharmacy 56.1 ml/min; Est GFR (African American) 66.6 ml/min; Est GFR (Non-African American) 57.5 ml/min; Magnesium 1.5 mg/dl (1.7-2.4)
[2023-03-10 07:42] LABS: Estimated Average Glucose 151 mg/dl; Hemoglobin A1C 6.9 % (4.5-5.6)
[2023-03-10] MEDS: INSULIN ASPART PER UNIT CHARGE SC SCH ×2 (08:19→12:25)
[2023-03-10] MEDS: SERTRALINE HCL 50 MG TABLET PO SCH (08:20)
[2023-03-10] MEDS: POTASSIUM CITRATE 10 MEQ TAB PO SCH ×2 (08:20→12:39)
[2023-03-10] MEDS: DOXYCYCLINE HYCLATE 100 MG CAP PO SCH (08:20)
[2023-03-10] MEDS: SODIUM CHLORIDE 0.9% 1,000 ML IV SCH (08:20)
[2023-03-10] MEDS: DOCUSATE SODIUM 100 MG CAP PO SCH (08:20)
[2023-03-10] MEDS ORDERED: MAGNESIUM CHLORIDE W/CALCIUM 64MG DELAYED REL TAB PO SCH (10:15)
[2023-03-10] MEDS ORDERED: REMDESIVIR 100 MG in SODIUM CHLORIDE 0.9% 230 ML IV SCH (12:00)
[2023-03-10] MEDS: CALCIUM CITRATE 950 MG TAB PO SCH (12:39)
--- NOTE | 2023-03-10 13:16 | Hospitalist Progress Note ---
Date of Service March 10, 2023 Assessment & Plan (1) Weakness: (2) Hypotension: (3) DUNCAN (acute kidney injury): (4) Hypomagnesemia: (5) Pre-syncope: (6) COVID-19: Plan Pt is a 72yoM with PMHx significant for Hx of kidney stones, HTN, HLD, DMII, Mood disorder presenting with a presyncopal episode [place] gate [place] the [place] [employer]. Hypotension/Presyncopal Episode COVID-19 infection. Vaccinated for COVID as per patient Clinically dehydrated --CT Head:There is no hemorrhage, mass effect, or evidence of acute territorial ischemia by CT criteria. --CXR:Cardiomegaly with no active disease in the chest. CRP 9.42 Procalcitonin 0.16 Received Remdesivir --received 2 doses No indication for steroids Saturating well on room air Dehydration improved with IV fluids Empirically on doxycycline Plan to discharge home today DUNCAN --CT ABD:No acute infectious or inflammatory findings are identified in the abdomen or pelvis. A large right inguinal hernia contains nonobstructed bowel. Punctate nonobstructing right renal calculus. Prostatomegaly with evidence of chronic bladder outlet obstruction. Hepatomegaly and mild steatosis. Cr 2.7>1.6>1.23 Fatty liver, prostatomegaly, nonobstructive right inguinal hernia--chronic/patient aware Continue to hold lisinopril, HCTZ Received IV fluids Monitor renal function Avoid nephrotoxic agents as able Monitor Hypomagnesemia Replete as needed Hyponatremia Na 136 monitor Resolved H/O nephrolithiasis Non obstructing calculus noted on CT abd pelvis as above On potassium citrate and OTC calcium citrate, follows with urology Also on OTC calcium citrate Prostatomegaly with chronic bladder outlet obstruction Follows with urology Monitor for any retention Constipation Continue bowel regimen Monitor DM II HbA1C 6.9 Hold metformin Continue Insulin while hospitalized HTN Presented with Hypotension Hold lisinopril, HCTZ Monitor BP HLD Continue statin Mood Disorder Continue sertraline DVT Px: Lovenox SQ CODE STATUS: Full code Disposition Home Admission and Anticipated Discharge Date Admission Date: March 09, 2023 Subjective Patient is seen and examined at bedside States feeling better today Denies any dizziness Less cough today Denies any chest pain, dyspnea, nausea, vomiting, abdominal pain, diarrhea Renal function back to baseline Plan to discharge home today Review of Systems Review of Systems: All systems reviewed & are unremarkable except as noted in Subjective Physical Exam Physical Exam: Physical Exam: Vitals signs as noted above General Appearance:Moderately built and nourished, no apparent distress Head: normocephalic, Atraumatic Eyes: normal inspection, EOMI Neck: supple, Trachea midline Respiratory/Chest: Decreased breath sounds, CTA, No accessory muscle use Cardiovascular: S1, S2, No murmur Abdomen/GI:Soft, Non tender, Bowel sounds present Extremities/Musculoskeletal:normal inspection, no edema Neurologic/Psych:AAOX3, grossly no focal neurological deficits Skin: normal color, warm Results & Data Results & Data Vital Signs (Past 12 Hours) Vital Signs Temp Pulse Pulse Resp BP Pulse Ox O2 Del Method 03/10/23 11:36 36.9 C 87 18 110/75 96 Room Air 03/10/23 08:00 72 03/10/23 07:24 36.8 C 70 18 131/77 97 Room Air 03/10/23 03:49 36.8 C 78 18 121/73 94 Room Air Laboratory Results Short CBC 03/10/23 Range/Units 06:17 WBC 7.18 (4.8-10.8) K/ul Hgb 10.9 L (14.0-18.0) g/dl Hct 32.3 L (42.0-52.0) % Plt Count 197 (130-400) K/uL BMP 03/10/23 06:17 Sodium 136 Potassium 4.0 Chloride 105 Carbon Dioxide 25 BUN 28 H Creatinine 1.23 D Glucose 91 Calcium 8.1 L
--- NOTE | 2023-03-10 14:35 | Discharge Summary ---
Date of Service March 10, 2023 Admission HPI Per Admitting Provider Pt is a 72yoM with PMHx significant for Hx of kidney stones, HTN, HLD, DMII, Mood disorder presenting with a presyncopal episode while [place] gate [place] the [place] [employer]. States that he typically follows with a pcp in [place]. States he was walking into the stadium when he felt weak and sat down. The security noticed him sitting and got medical/EMS to evaluate him and they noted that his blood pressure was very low and advised followup in the ED. Pt states he has had a cough for the last 3 days but did not make much of it. Denies SOB or chest pain. Unsure if he has been recently bitten by a tick but notes it could be a possibility. 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 Has not had episodes like this before. Notes a chronic history of kidney stones that he states he follows with urology for and is on medication to prevent formation. Notes he got very big ones in the past. ED Course: Head ct unremarkable, hypomagnesemia of 1.5 replenished and received a 1L bolus of fluid. Cr newly elevated at 2.[address] ordered by the ED for followup. Principal Diagnosis COVID-19 infection Acute kidney injury Hypotension/dehydration Hypomagnesemia Discharge Data Allergies Allergy/AdvReac Type Severity Reaction Status Date / Time banana Allergy Severe Anaphylaxis Verified 03/08/23 16:45 Penicillins Allergy Unknown POSITIVE Verified 03/08/23 16:45 ALLERGY TEST Sulfa (Sulfonamide Allergy Unknown POSITIVE Verified 03/08/23 16:45 Antibiotics) ALLERGY TEST Consultations 03/08/23 18:57 ED Decision to Admit Stat Procedures Performed Laboratory Results WBC 7.18 K/ul (4.8-10.8) 03/10/23 06:17 RBC 3.72 M/uL (4.70-6.10) L 03/10/23 06:17 Hgb 10.9 g/dl (14.0-18.0) L 03/10/23 06:17 Hct 32.3 % (42.0-52.0) L 03/10/23 06:17 MCV 86.8 fL (80.0-100.0) 03/10/23 06:17 MCH 29.3 pg (25.0-34.0) 03/10/23 06:17 MCHC 33.7 g/dL (32.0-36.0) 03/10/23 06:17 RDW Std Deviation 45.1 fL (36.4-46.3) 03/10/23 06:17 RDW Coeff of Liz 14.2 % (11.5-14.5) 03/10/23 06:17 Plt Count 197 K/uL (130-400) 03/10/23 06:17 MPV 10.9 fL (9.4-12.4) 03/10/23 06:17 Immature Gran % (Auto) 0.4 % 03/08/23 14:47 Neut % (Auto) 80.1 % 03/08/23 14:47 Lymph % (Auto) 9.4 % 03/08/23 14:47 [place] % (Auto) 9.1 % 03/08/23 14:47 Eos % (Auto) 0.1 % 03/08/23 14:47 Baso % (Auto) 0.9 % 03/08/23 14:47 Neut # (Auto) 8.01 K/uL (1.40-6.50) H 03/08/23 14:47 Lymph # (Auto) 0.94 K/uL (1.20-3.40) L 03/08/23 14:47 [place] # (Auto) 0.91 K/uL (0.11-0.59) H 03/08/23 14:47 Eos # (Auto) 0.01 K/uL (0.00-0.50) 03/08/23 14:47 Baso # (Auto) 0.09 K/uL (0.00-0.20) 03/08/23 14:47 Immature Gran # (Auto) 0.04 K/uL (0.01-0.20) 03/08/23 14:47 PT 11.9 Seconds (9.0-12.0) 03/08/23 14:47 INR 1.1 (0.9-1.1) 03/08/23 14:47 Sodium 136 mmol/L (136-145) 03/10/23 06:17 Potassium 4.0 mmol/L (3.5-5.1) 03/10/23 06:17 Chloride 105 mmol/L (98-107) 03/10/23 06:17 Carbon Dioxide 25 mmol/L (21-32) 03/10/23 06:17 Anion Gap 6 (3-11) 03/10/23 06:17 BUN 28 mg/dl (6-23) H 03/10/23 06:17 Creatinine 1.23 mg/dl (0.6-1.4) D 03/10/23 06:17 Est Cr Clr Drug Dosing 56.1 ml/min 03/10/23 06:17 Est GFR ( Amer) 66.6 ml/min 03/10/23 06:17 Est GFR (Non-Af Amer) 57.5 ml/min 03/10/23 06:17 BUN/Creatinine Ratio 22.8 (10-20) H 03/10/23 06:17 Glucose 91 mg/dl (70-99(Fasting)) 03/10/23 06:17 POC Glucose 88 mg/dl (70-99) 03/10/23 11:37 Estimat Average Glucose 151 mg/dl 03/09/23 07:14 Hemoglobin A1c 6.9 % (4.5-5.6) H 03/09/23 07:14 Calcium 8.1 mg/dl (8.6-10.3) L 03/10/23 06:17 Phosphorus 2.5 mg/dl (2.5-4.9) 03/09/23 07:14 Magnesium 1.5 mg/dl (1.7-2.4) L 03/10/23 06:17 Total Bilirubin 0.7 mg/dl (0.2-1.0) 03/09/23 07:14 AST 18 U/L (13-39) 03/09/23 07:14 ALT 15 U/L (7-52) 03/09/23 07:14 Alkaline Phosphatase 43 U/L (34-104) 03/09/23 07:14 Troponin I High Sens 18.3 pg/ml (0-20) 03/08/23 14:47 C-Reactive Protein 9.42 mg/dl (0-0.5) H 03/10/23 06:17 Total Protein 6.5 gm/dl (6.0-8.3) 03/09/23 07:14 Albumin 3.7 gm/dl (3.4-5.0) 03/09/23 07:14 Globulin 2.8 gm/dl (2.5-4.0) 03/09/23 07:14 Albumin/Globulin Ratio 1.3 (0.9-2) 03/09/23 07:14 Lipase 21 U/L (11-82) 03/08/23 14:47 Procalcitonin 0.16 ng/ml (0-0.5) 03/10/23 06:17 TSH 1.380 uIu/ml (0.300-4.500) 03/08/23 14:47 Urine Color Yellow 03/08/23 16:02 Urine Appearance Cloudy (Clear) A 03/08/23 16:02 Urine pH 5.0 (4.5-7.5) 03/08/23 16:02 Ur Specific [place] 1.015 (1.000-1.030) 03/08/23 16:02 Urine Protein 1+ (Negative) H 03/08/23 16:02 Urine Glucose (UA) Negative (Negative) 03/08/23 16:02 Urine Ketones Trace (Negative) H 03/08/23 16:02 Urine Blood Negative (Negative) 03/08/23 16:02 Urine Nitrite Negative (Negative) 03/08/23 16:02 Urine Bilirubin Negative (Negative) 03/08/23 16:02 Urine Urobilinogen Negative (Negative) 03/08/23 16:02 Ur Leukocyte Esterase Negative (Negative) 03/08/23 16:02 Urine WBC (Auto) 1-5 /hpf (0-5) 03/08/23 16:02 Urine RBC (Auto) 5-10 /hpf (0-4) H 03/08/23 16:02 U Hyaline Cast (Auto) 10-30 /lpf (0-5) H 03/08/23 16:02 U Epithel Cells (Auto) >30 /lpf (0-5) H 03/08/23 16:02 Urine Bacteria (Auto) Negative (Negative) 03/08/23 16:02 Adenovirus (PCR) Not Detected (NotDetected) 03/08/23 20:04 B. pertussis DNA (PCR) Not Detected (NotDetected) 03/08/23 20:04 B.parapertussis DNA PCR Not Detected (NotDetected) 03/08/23 20:04 Lyme Disease IgG Ab Negative (Negative) 03/08/23 14:47 Lyme Disease IgM Ab Negative (Negative) 03/08/23 14:47 C. pneumoniae DNA (PCR) Not Detected (NotDetected) 03/08/23 20:04 Coronavirus OC43 (PCR) Not Detected (NotDetected) 03/08/23 20:04 Coronavirus HKU1 (PCR) Not Detected (NotDetected) 03/08/23 20:04 Coronavirus 229E (PCR) Not Detected (NotDetected) 03/08/23 20:04 SARS-CoV-2 (PCR) DETECTED (NotDetected) A* 03/08/23 20:04 Coronavirus NL63 (PCR) Not Detected (NotDetected) 03/08/23 20:04 Human Metapneumovir PCR Not Detected (NotDetected) 03/08/23 20:04 Influenza Type A (PCR) Not Detected (NotDetected) 03/08/23 20:04 Influenza Type B (PCR) Not Detected (NotDetected) 03/08/23 20:04 M. pneumoniae (PCR) Not Detected (NotDetected) 03/08/23 20:04 Parainfluenza 1 (PCR) Not Detected (NotDetected) 03/08/23 20:04 Parainfluenza 2 (PCR) Not Detected (NotDetected) 03/08/23 20:04 Parainfluenza 3 (PCR) Not Detected (NotDetected) 03/08/23 20:04 Parainfluenza 4 (PCR) Not Detected (NotDetected) 03/08/23 20:04 RSV (PCR) Not Detected (NotDetected) 03/08/23 20:04 Entero/Rhino (PCR) Not Detected (NotDetected) 03/08/23 20:[address] 03/08/23 15:06 CT SCAN OF THE BRAIN WITHOUT IV CONTRAST CLINICAL HISTORY: Generalized weakness. Hypotension. COMPARISON STUDY: No priors. TECHNIQUE: Unenhanced axial CT scan of the brain is performed from the vertex to the skull base. A dose lowering technique was utilized adhering to the principles of ALARA. CT DOSE: 703.85 mGy.cm FINDINGS: Brain parenchyma: There is age-related involutional change noting mild subcortical and periventricular microangiopathic disease. There is no hemorrhage, mass effect, or evidence of acute territorial ischemia by CT criteria. Ybarra-white matter differentiation is preserved. No extra-axial fluid collection is seen. Ventricles, sulci, cisterns: Prominent secondary to involutional change. Intracranial vasculature: There is atherosclerotic calcification of the cavernous carotid and vertebral artery. Calvarium: Unremarkable. Sinuses and mastoids: There is trace mucosal thickening in the right maxillary antrum and ethmoid sinuses. There is also trace mucosal thickening within the right frontal and left sphenoid sinuses. The mastoid air cells are well pneumatized. Orbits: The bony orbits are grossly intact. IMPRESSION: There is no hemorrhage, mass effect, or evidence of acute territorial ischemia by CT criteria. ACT 112: Negative or not required by law. Electronically signed by: Jayjay Delgado M.D. 03/08/2023 4:01 PM Abdomen/Pelvis CT 03/08/23 16:27 CT SCAN OF THE ABDOMEN AND PELVIS WITHOUT IV CONTRAST CLINICAL HISTORY: Acute renal insufficiency. COMPARISON STUDY: No priors. TECHNIQUE: CT scan of the abdomen and pelvis is performed from the lung bases to the proximal femora. Images are reviewed in the axial, sagittal, and coronal planes. IV contrast was not administered for this examination. A dose lowering technique was utilized adhering to the principles of ALARA. CT DOSE: 1210.14 mGy.cm FINDINGS: Lung bases: The heart is mildly enlarged and without pericardial effusion. The coronary arteries are densely calcified. There is mild aneurysmal dilatation of the partially visualized ascending thoracic aorta. This measures up to 4.3 cm. There are scattered calcified granulomas. The lung bases are otherwise clear noting bibasilar scarring/atelectasis. There is a tiny hiatal hernia. Liver: The unenhanced liver is enlarged, measuring 19.7 cm in length. The liver demonstrates diminished attenuation indicating mild steatosis. Fatty sparing is seen adjacent to the gallbladder fossa. There is no intrahepatic biliary ductal dilatation. Gallbladder: Unremarkable. Spleen: Normal in size and attenuation. There are calcified splenic granulomas. Pancreas: The unenhanced pancreas is grossly unremarkable. Adrenal glands: Unremarkable. Kidneys: The unenhanced kidneys are normal in size and without hydronephrosis. There is a punctate nonobstructing right renal calculus. No left renal calculi are identified and no ureteral stone is seen. A 1.7 cm cyst is seen in the right upper pole. Abdominal vasculature: The abdominal aorta is normal in course and caliber noting advanced atherosclerotic calcification. Bowel: There is moderate colonic diverticulosis without CT evidence of acute diverticulitis. Mild to moderate fecal retention is noted throughout the colon. There is a large right inguinal hernia which contains loops of bowel. There is no bowel obstruction. The appendix is well-visualized and normal, and located within the right hernia. Peritoneum: There is no intraperitoneal free air or abdominal ascites. Lymphadenopathy: None. Pelvic viscera: The prostate gland is enlarged and heterogeneous. The bladder is distended, and the wall is thickened/trabeculated indicating chronic outlet obstruction. There is evidence of previous left inguinal herniorrhaphy. Findings also suggest previous right herniorrhaphy. There is a large right inguinal hernia which contains bowel loops. Skeletal structures: The skeletal structures are osteopenic. There is moderate lumbosacral spondylosis. Degenerative change and partial fusion is seen in the sacroiliac joints. No lytic or blastic lesions are seen. IMPRESSION: 1. No acute infectious or inflammatory findings are identified in the abdomen or pelvis. 2. A large right inguinal hernia contains nonobstructed bowel. 3. Punctate nonobstructing right renal calculus. 4. Prostatomegaly with evidence of chronic bladder outlet obstruction. 5. Hepatomegaly and mild steatosis. 6. Additional findings as above. ACT 112: Negative or not required by law. Electronically signed by: Jayjay Delgado M.D. 03/08/2023 5:13 PM Chest X-Ray 03/08/23 19:45 SINGLE VIEW CHEST CLINICAL HISTORY: Cough FINDINGS: An AP, portable, upright chest radiograph is obtained. No prior studies are available for comparison at the time of dictation. The heart is enlarged. The pulmonary vasculature is noncongested. There is bibasilar scarring/atelectasis. Scattered calcified granulomas are observed. No airspace consolidation or large pleural effusion is identified. No pneumothorax is seen. The skeletal structures are osteopenic. The bony thorax is grossly intact. Arthritic change is noted in the shoulders. IMPRESSION: Cardiomegaly with no active disease in the chest. ACT 112: Negative or not required by law. Electronically signed by: Jayjay Delgado M.D. 03/08/2023 8:00 PM Ordered Studies 03/08/23 15:06 CT head/brain wo con Stat 03/08/23 16:27 CT abd pelvis wo con Stat Hospital Course (1) Weakness: (2) Hypotension: (3) DUNCAN (acute kidney injury): (4) Hypomagnesemia: (5) Pre-syncope: (6) COVID-19: Plan Pt is a 72yoM with PMHx significant for Hx of kidney stones, HTN, HLD, DMII, Mood disorder presenting with a presyncopal episode while [place] gate [place] the [place] [employer]. Hypotension/Presyncopal Episode COVID-19 infection. Vaccinated for COVID as per patient Clinically dehydrated --CT Head:There is no hemorrhage, mass effect, or evidence of acute territorial ischemia by CT criteria. --CXR:Cardiomegaly with no active disease in the chest. CRP 9.42 Procalcitonin 0.16 Received Remdesivir --received 2 doses No indication for steroids Saturating well on room air Dehydration improved with IV fluids Empirically on doxycycline Plan to discharge home today DUNCAN --CT ABD:No acute infectious or inflammatory findings are identified in the abdomen or pelvis. A large right inguinal hernia contains nonobstructed bowel. Punctate nonobstructing right renal calculus. Prostatomegaly with evidence of chronic bladder outlet obstruction. Hepatomegaly and mild steatosis. Cr 2.7>1.6>1.23 Fatty liver, prostatomegaly, nonobstructive right inguinal hernia--ch ronic/patient aware Continue to hold lisinopril, HCTZ Received IV fluids Monitor renal function Avoid nephrotoxic agents as able Monitor Hypomagnesemia Replete as needed Hyponatremia Na 136 monitor Resolved H/O nephrolithiasis Non obstructing calculus noted on CT abd pelvis as above On potassium citrate and OTC calcium citrate, follows with urology Also on OTC calcium citrate Prostatomegaly with chronic bladder outlet obstruction Follows with urology Monitor for any retention Constipation Continue bowel regimen Monitor DM II HbA1C 6.9 Hold metformin Continue Insulin while hospitalized HTN Presented with Hypotension Hold lisinopril, HCTZ Monitor BP HLD Continue statin Mood Disorder Continue sertraline DVT Px: Lovenox SQ CODE STATUS: Full code Disposition Home Total Time Total Time Spent Total Time Spent (In Minutes): 55 minutes Discharge Plan Discharge Items Patient Disposition: Home - Self-Care Reason For Visit: HYPOTENSION Discharge Diagnosis: COVID-19 infection Acute kidney injury Hypotension/dehydration Hypomagnesemia Activity: Per Instructions section Exercise/Sports: Wait until after follow-up appointment Non-emergency contact: Primary Care Provider Call non-emergency contact if: you have any medication questions, your symptoms worsen, your pain is concerning for you and you have a fever Follow-up/Referrals: Edu Maier MD [Outside Practitioners] - 03/13/23 1:45 pm (With Rica Hernández) Diet: Carb Consistent or DM2 Addtl Attending Provider Instructions: Follow-up with your primary care physician in 1 week. -- Get blood test (basic metabolic panel, magnesium level) in 1 week and follow- up with your physician as advised. --Complete the antibiotic course doxycycline as prescribed. --Hold taking lisinopril/HCTZ as advised. Monitor your blood pressure regularly at home as advised. Seek immediate medical attention if your symptoms reoccur or worsen Please take all medications as instructed on discharge list below. Please call if you have any questions or problems. You can reach a [facility] hospitalist on duty at [facility] 24 hours a day by calling [phone] Home Isolation COVID-19 Instructions The following information about Home Isolation is from the CDC Website: https://www.cdc.gov/coronavirus/2019-ncov/hcp/rgrjndzv-kuxifeb-cuxtob.html Stay home except to get medical care People who are mildly ill with COVID-19 are able to isolate at home during their illness. You should restrict activities outside your home, except for getting medical care. Do not go to work, school, or public areas. Avoid using public transportation, ride-sharing, or taxis. Separate yourself from other people and animals in your home People: As much as possible, you should stay in a specific room and away from other people in your home. Also, you should use a separate bathroom, if available. Animals: You should restrict contact with pets and other animals while you are sick with COVID-19, just like you would around other people. Although there have not been reports of pets or other animals becoming sick with COVID-19, it is still recommended that people sick with COVID-19 limit contact with animals until more information is known about the virus. When possible, have another member of your household care for your animals while you are sick. If you are sick with COVID-19, avoid contact with your pet, including petting, snuggling, being kissed or licked, and sharing food. If you must care for your pet or be around animals while you are sick, wash your hands before and after you interact with pets and wear a face mask. Call ahead before visiting your doctor If you have a medical appointment, call the healthcare provider and tell them that you have or may have COVID-19. This will help the healthcare providers office take steps to keep other people from getting infected or exposed. Wear a face mask You should wear a face mask when you are around other people (e.g., sharing a room or vehicle) or pets and before you enter a healthcare providers office. If you are not able to wear a face mask (for example, because it causes trouble breathing), then people who live with you should not stay in the same room with you, or they should wear a face mask if they enter your room. Cover your coughs and sneezes Cover your mouth and nose with a tissue when you cough or sneeze. Throw used tissues in a lined trash can. Immediately wash your hands with soap and water for at least 20 seconds or, if soap and water are not available, clean your hands with an alcohol-based hand media associate that contains at least 60% alcohol. Clean your hands often Wash your hands often with soap and water for at least 20 seconds, especially after blowing your nose, coughing, or sneezing; going to the bathroom; and before eating or preparing food. If soap and water are not readily available, use an alcohol-based hand media associate with at least 60% alcohol, covering all surfaces of your hands and rubbing them together until they feel dry. Soap and water are the best option if hands are visibly dirty. Avoid touching your eyes, nose, and mouth with unwashed hands. Avoid sharing personal household items You should not share dishes, drinking glasses, cups, eating utensils, towels, or bedding with other people or pets in your home. After using these items, they should be washed thoroughly with soap and water. Clean all high-touch surfaces everyday High touch surfaces include counters, tabletops, doorknobs, bathroom fixtures, toilets, phones, keyboards, tablets, and bedside tables. Also, clean any surfaces that may have blood, stool, or body fluids on them. Use a household cleaning spray or wipe, according to the label instructions. Labels contain instructions for safe and effective use of the cleaning product including precautions you should take when applying the product, such as wearing gloves and making sure you have good ventilation during use of the product. Monitor your symptoms Seek prompt medical attention if your illness is worsening (e.g., difficulty breathing).Beforeseeking care, call your healthcare provider and tell them that you have, or are being evaluated for, COVID-19. Put on a face mask before you enter the facility. These steps will help the healthcare providers office to keep other people in the office or waiting room from getting infected or exposed. Ask your healthcare provider to call the local or [facility] health department. Persons who are placed under active monitoring or facilitated self- monitoring should follow instructions provided by their local health department or occupational health professionals, as appropriate. When working with your local health department check their available hours. If you have a medical emergency and need to call 911, notify the dispatch personnel that you have, or are being evaluated for COVID-19. If possible, put on a face mask before emergency medical services arrive. Discontinuing home isolation Patients with confirmed COVID-19 should remain under home isolation precautions until the risk of secondary transmission to others is thought to be low. The decision to discontinue home isolation precautions should be made on a [id number] basis, in consultation with healthcare providers and [facility] and [facility] health departments. Pending Studies at Discharge: No Stand-Alone Forms: My [facility], Smoking Cessation Medications and DC Order Prescriptions: New doxycycline hyclate 100 mg Capsule 100 mg PO BID Qty: 13 0RF Mag 64 64 mg Tablet,Delayed Release (Dr/Ec) 64 mg PO BID Qty: 30 0RF Continued atorvastatin 40 mg tablet 40 mg PO QPM metformin 500 mg tablet 1,000 mg PO BIDM potassium citrate 10 mEq (1,080 mg) tablet extended release 10 meq PO TIDM sertraline 25 mg tablet 25 mg PO DAILY calcium citrate 200 mg (950 mg) Tablet 600 mg PO HS Rx Instructions: Take with third dose of potassium citrate at night for kidney stones Held lisinopril-hydrochlorothiazide 20-25 mg tablet 1 tab PO QDL Hold Instructions: Until follow up with your Primary care physician in 1 week Discharge Orders: Discharge Order (Routine); Ordered 03/10/23 Ordered By: Curt Christensen/Other Patient Handouts: Managing Type 2 Diabetes Admission Data Admit Date/Time: 03/09/23 16:26 Attending Provider: Curt Todd Admit Provider: Betty Crocker Primary Care Provider: PCP,NO Other Providers: Betty Crocker
== END 2023-03-10 16:00 | disposition home or self-care (01) | DRG 178 ==
LOC: ED 14:38 → 2S 14:38 → SUATTDRO 19:07 → 2S 22:31